=== PATIENT | male | born 1960 | race Caucasian/White ===

== ENCOUNTER 2023-05-25 14:44 | Emergency (ER) | payer MEDICARE, MEDICAID ==
[~2023-05-25] VITALS: Ht 182.9 cm; Wt 84.1 kg
[~2023-05-25 14:44] MED LIST: BENZATROPINE; COGENTIN 1MG1 MG/TAB PO; HALDOL 1MG T1 MG/TAB PO; KLONOPIN 1MG1 MG PO
[2023-05-25 14:52] VITALS: TEMP 97.5
[2023-05-25 15:48] LABS: BASO % 0.7 % (0.0-2.0); EOS # 0.2 K/mm3 (0.0-0.7); EOS % 3.2 % (0.0-4.0); GRAN # 3.3 K/mm3 (1.4-6.5); GRAN % 55.3 % (42.2-75.2); HEMATOCRIT 37.8 % (42.0-52.0); HEMOGLOBIN 13.4 g/dl (13.5-18.0); LYMPH % 32.7 % (20.0-51.0); MEAN CELL VOLUME 92 fl (80.0-100.0); MEAN CORPUSCULAR HEMOGLOBIN 33 pg (27-31); MEAN CORPUSCULAR HGB CONC 35 g/dl (33.0-37.0); MEAN PLATELET VOLUME 9.2 fl (7.4-10.4); MONO # 0.5 K/mm3 (0.1-0.6); MONO % 7.8 % (1.7-9.3); PLATELET COUNT 211 K/mm3 (130-400); RED BLOOD COUNT 4.11 M/mm3 (4.20-5.60); REDCELL DISTRIBUTION WIDTH-CV 11.8 % (11.5-14.5)
[2023-05-25 16:05] LABS: CALCIUM 9.2 mg/dL (8.4-10.2); CREATININE, serum 0.75 mg/dL (0.72-1.25); POTASSIUM 4.1 mmol/L (3.5-4.5); TOTAL PROTEIN 6.4 gm/dL (6.2-8.1)
[2023-05-25] MEDS ORDERED: NORVASC 10MG10 MG PO (16:49)
[2023-05-25] MEDS ORDERED: cloNIDine 0.1 MG TAB PO ONE (17:00)
[2023-05-25 17:01] VITALS: BP 190/116; PULSE 76
--- NOTE | 2023-05-26 11:13 | NUR ---
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 SW met with patient and provided information about Advance Directives including a blank Living Will and DPOA-HC.
== END 2023-05-25 17:05 | disposition home or self-care (01) ==
LOC: COL.ER 14:44
PROVIDERS: Personal Emergency Response Attendant
DX: F20.9 Schizophrenia, unspecified (principal); I10 Essential (primary) hypertension; E87.1 Hypo-osmolality and hyponatremia; F17.200 Nicotine dependence, unspecified, uncomplicated

== ENCOUNTER 2023-09-24 15:15 | Emergency (ER) | payer MEDICARE, MEDICAID ==
[~2023-09-24] VITALS: Ht 198.1 cm; Wt 84.1 kg
[~2023-09-24 15:15] MED LIST changes: +NORVASC 10MG10 MG PO
[2023-09-24 15:16] VITALS: TEMP 99.2
[2023-09-24 15:36] LABS: BASO % 0.5 % (0.0-2.0); EOS # 0.3 K/mm3 (0.0-0.7); EOS % 4.5 % (0.0-4.0); GRAN # 4.5 K/mm3 (1.4-6.5); GRAN % 60.4 % (42.2-75.2); HEMOGLOBIN 11.7 g/dl (13.5-18.0); LYMPH % 26.6 % (20.0-51.0); MEAN CELL VOLUME 95 fl (80.0-100.0); MEAN CORPUSCULAR HEMOGLOBIN 32 pg (27-31); MEAN CORPUSCULAR HGB CONC 34 g/dl (33.0-37.0); MEAN PLATELET VOLUME 9.7 fl (7.4-10.4); MONO # 0.6 K/mm3 (0.1-0.6); MONO % 7.6 % (1.7-9.3); PLATELET COUNT 238 K/mm3 (130-400); RED BLOOD COUNT 3.65 M/mm3 (4.20-5.60); REDCELL DISTRIBUTION WIDTH-CV 12.4 % (11.5-14.5)
[2023-09-24 15:41] LABS: HEMATOCRIT 34.6 % (42.0-52.0)
[2023-09-24 15:54] LABS: ALBUMIN 3.4 g/dL (3.4-4.8); ANION GAP 9 mmol/L (7-16); CALCIUM 9.4 mg/dL (8.4-10.2); CHLORIDE 106 mEq/L (98-107); GLUCOSE 89 mg/dL (70-99); POTASSIUM 3.8 mEq/L (3.5-4.5); SODIUM 139 mEq/L (136-145); TOTAL PROTEIN 5.9 g/dl (6.2-8.1)
[2023-09-24 15:58] LABS: AST,SGOT < 3 U/L (5-34); BILIRUBIN,TOTAL < 0.1 mg/dL (0.2-1.2)
[2023-09-24 16:12] LABS: ALANINE AMINOTRANSFERASE 21 U/L (0-55); ALKALINE PHOSPHATASE 60 U/L (40-150); BLOOD UREA NITROGEN 17 mg/dL (8-26); CREATININE, serum 0.97 mg/dL (0.72-1.25)
[2023-09-24 16:24] LABS: ARTERIAL BLD GAS O2 SATURATION 93.9 % (92-100); ARTERIAL BLD GAS TCO2 CT 25.2; ARTERIAL BLOOD GAS HCO3 24.1 meq/L (22-26); ARTERIAL BLOOD GAS PCO2 37.4 mmHg (35-45); ARTERIAL BLOOD GAS PO2 69.7 mmHg (80-100); ARTERIAL BLOOD GAS pH 7.43 (7.35-7.45)
[2023-09-24 17:39] LABS: COLLECTION METHOD CLEAN CATCH
[2023-09-24 17:42] LABS: PH 6.5 (5.0-8.5); URINE APPEARANCE CLEAR (CLEAR/HAZY); URINE BLOOD NEGATIVE (NEGATIVE); URINE COLOR YELLOW (YELLOW); URINE GLUCOSE NEGATIVE (NEGATIVE); URINE KETONE NEGATIVE (NEGATIVE); URINE NITRATE NEGATIVE (NEGATIVE); URINE PROTEIN(semi-quant) NEGATIVE (NEGATIVE); URINE UROBILINOGEN 0.2 E.U/dL (0.2-1.0)
[2023-09-24 17:59] LABS: TRICYCLIC ANTIDEPRESS URINE NEGATIVE (NEGATIVE)
[2023-09-24 18:26] VITALS: BP 129/94; PULSE 76
== END 2023-09-24 18:26 | disposition home or self-care (01) ==
LOC: COL.ER 15:15
PROVIDERS: Emergency Medicine
DX: R41.82 Altered mental status, unspecified (principal); F20.9 Schizophrenia, unspecified; Z79.899 Other long term (current) drug therapy

== ENCOUNTER 2024-01-15 14:43 | Emergency (ER) | payer MEDICARE, MEDICAID ==
[~2024-01-15] VITALS: Ht 182.9 cm; Wt 90.9 kg
[2024-01-15 15:19] LABS: COLLECTION METHOD CLEAN CATCH
[2024-01-15 15:23] LABS: PH 6.5 (5.0-8.5); URINE APPEARANCE CLEAR (CLEAR/HAZY); URINE BLOOD NEGATIVE (NEGATIVE); URINE COLOR YELLOW (YELLOW); URINE GLUCOSE NEGATIVE (NEGATIVE); URINE KETONE NEGATIVE (NEGATIVE); URINE NITRATE NEGATIVE (NEGATIVE); URINE PROTEIN(semi-quant) NEGATIVE (NEGATIVE); URINE UROBILINOGEN 0.2 E.U/dL (0.2-1.0)
[2024-01-15 15:33] LABS: TRICYCLIC ANTIDEPRESS URINE NEGATIVE (NEGATIVE)
[2024-01-15 15:47] LABS: BASO # 0.1 K/mm3 (0.0-0.2); BASO % 0.5 % (0.0-2.0); EOS # 0.6 K/mm3 (0.0-0.7); GRAN # 5.7 K/mm3 (1.4-6.5); GRAN % 58.3 % (42.2-75.2); HEMOGLOBIN 12.7 g/dl (13.5-18.0); LYMPH # 2.7 K/mm3 (1.2-3.4); LYMPH % 27.3 % (20.0-51.0); MEAN CELL VOLUME 96 fl (80.0-100.0); MEAN CORPUSCULAR HEMOGLOBIN 33 pg (27-31); MEAN CORPUSCULAR HGB CONC 34 g/dl (33.0-37.0); MEAN PLATELET VOLUME 9.7 fl (7.4-10.4); MONO # 0.7 K/mm3 (0.1-0.6); MONO % 7.5 % (1.7-9.3); PLATELET COUNT 228 K/mm3 (130-400); RED BLOOD COUNT 3.83 M/mm3 (4.20-5.60); REDCELL DISTRIBUTION WIDTH-CV 12.6 % (11.5-14.5)
[2024-01-15 15:49] LABS: HEMATOCRIT 36.9 % (42.0-52.0)
[2024-01-15] MEDS ORDERED: CELEXA 20MG20 MG/TAB PO (15:52)
[2024-01-15] MEDS ORDERED: DESYREL 100MG100 MG PO (15:53)
[2024-01-15] MEDS ORDERED: HALDOL 5MG T5 MG/TAB PO (16:00)
[2024-01-15] MEDS ORDERED: MELATIN 3 MG-11 TAB PO (16:01)
[2024-01-15 16:12] LABS: ALANINE AMINOTRANSFERASE 17 U/L (0-55); ALKALINE PHOSPHATASE 66 U/L (40-150); ANION GAP 12 mmol/L (7-16); AST,SGOT 22 U/L (5-34); BILIRUBIN,TOTAL 0.8 mg/dL (0.2-1.2); BLOOD UREA NITROGEN 19 mg/dL (8-26); CALCIUM 9.7 mg/dL (8.4-10.2); CHLORIDE 104 mEq/L (98-107); CREATININE, serum 1.06 mg/dL (0.72-1.25); GLUCOSE 88 mg/dL (70-99); POTASSIUM 4.1 mEq/L (3.5-4.5); SODIUM 139 mEq/L (136-145); TOTAL PROTEIN 6.8 g/dl (6.2-8.1)
[2024-01-15 16:23] LABS: ALCOHOL(ethanol),MEDICAL < 10 mg/dL (0-10); SALICYLATE < 5.0 mg/dL (15.0-30.0)
[2024-01-15] MEDS ORDERED: traZODone 100 MG TAB PO ONE (20:45)
[2024-01-15] MEDS ORDERED: Benztropine 1 MG TAB PO ONE (20:45)
[2024-01-15] MEDS ORDERED: Haloperidol 5 MG TAB PO ONE (20:45)
[2024-01-15] MEDS ORDERED: OLANZapine 10 MG,Water For Injection,Sterile 2 ML IM ONE (23:45)
[2024-01-18 13:01] VITALS: BP 148/89; PULSE 89; TEMP 98.9
== END 2024-01-18 13:02 ==
LOC: COL.ER 14:43
PROVIDERS: Nurse Practitioner
DX: F20.9 Schizophrenia, unspecified (principal); F17.200 Nicotine dependence, unspecified, uncomplicated
CPT/HCPCS: J2359